=== PATIENT | female | born 1995 | race Caucasian/White ===

== ENCOUNTER 2021-09-14 11:20 | Inpatient (IN) | payer BC ==
[~2021-09-14 11:20] MED LIST: Iopamidol-370 76% 500 ML 1 ML ONE
[2021-09-14] MEDS ORDERED: Sodium Chloride 0.9% 100 ML ONE (11:56)
[2021-09-14] MEDS ORDERED: Ondansetron PF 4 MG/2 ML Vial ONE ×2 (11:56→14:57)
[2021-09-14] MEDS ORDERED: Piperacillin/Tazobactam 3.375 GM VIAL ONE (11:56)
[2021-09-14 12:26] LABS: BHCG - Serum Negative (NEGATIVE); Pregs Control Background? CLEAR/WHITE (CLR/WHITE); Pregs Control Bar Appear? YES (CONTROL BAR)
[2021-09-14 12:38] LABS: ALT (SGPT) 12 U/L (8-55); AST (SGOT) 14 U/L (5-34); Alkaline Phosphatase 71 U/L (40-110); Anion Gap 14 mmol/L (10-20); BUN (Urea Nitrogen) 20 mg/dL (7.0-18.7); Bilirubin, Total 0.8 mg/dL (0.2-1.2); Calc. Creatinine Clearance 0 mL/min (70-130); Carbon Dioxide 21 mmol/L (22-29); Chloride 100 mmol/L (98-107); Glucose 147 mg/dL (70-105); Lipase 12 U/L (8-78); Potassium 3.2 mmol/L (3.5-5.1); Sodium 132 mmol/L (136-145)
[2021-09-14 12:39] LABS: Bilirubin Small (Negative); Blood, Urine Large (Negative); Glucose, Urine (Dipstick) Negative (Negative); Ketone, Urine Trace mg/dL (Negative); Leukocyte Negative (Negative); Nitrite Negative (Negative); Protein, Urine (Dipstick) 100 mg/dL (Neg-Trace); pH, Urine 5.5 (5.0-9.0)
[2021-09-14 12:40] LABS: Clarity Turbid (Clear)
[2021-09-14 12:41] LABS: Hemoglobin 13.5 g/dL (12.0-16.0); Mean Corpuscular HGB CONC 34.3 g/dL (32.0-36.0); Mean Corpuscular Hemoglobin 30.6 pg (27.0-31.0); Mean Corpuscular Volume 89.4 fL (78.0-98.0); Mean Platelet Volume 6.7 fL (7.4-10.4); Platelet Count 316 thou/uL (130-400); RBC Distribution Width 12.1 % (11.5-14.5); Red Blood Cell (RBC) Count 4.39 mill/uL (4.20-5.40); White Blood Cell (WBC) Count 18.3 thou/uL (4.8-10.8)
[2021-09-14 12:46] LABS: Bacteria/HPF 2+ HPF (None Seen)
[2021-09-14 12:58] LABS: Band 53 % (5-11); Lymphocytes 10 % (21-51); MDiff Complete? YES; Monocytes 3 % (0-10); Neutrophil 34 % (42-75); Platelet Morphology Comment Appears Adequate; Polychromasia SLIGHT = 2-3 cells (100X) (0-2/hpf); Reflex for Review?? YES
[2021-09-14] MEDS ORDERED: Vancomycin 1 GM/200 ML BAG ONE (13:38)
[2021-09-14] MEDS ORDERED: Iothalamate Meglumine 60% 50 ML VIAL FS ONE (14:31)
[2021-09-14] MEDS ORDERED: Fentanyl 100 MCG/2 ML VIAL ONE (14:34)
[2021-09-14] MEDS ORDERED: Midazolam HCl 2 mg/2 ml Vial ONE (14:40)
[2021-09-14] MEDS ORDERED: SUGAMMADEX SODIUM 200 MG/2 ML VIAL ONE (14:40)
[2021-09-14] MEDS ORDERED: Lidocaine 1% PF 5 ML VIAL ONE (14:57)
[2021-09-14] MEDS ORDERED: Dexamethasone 20 MG/5 ML VIAL ONE (14:57)
[2021-09-14] MEDS ORDERED: PROPOFOL 200 MG/20 ML VIAL ONE (14:57)
[2021-09-14] MEDS ORDERED: Succinylcholine 200 MG/10 ml SYRINGE FS ONE (14:57)
[2021-09-14 15:00] LABS: SARS-CoV-2 NAA Rapid Test Not Detected (NotDetected)
[2021-09-14] MEDS ORDERED: Bisacodyl 5 MG TAB PO PRN (18:09)
[2021-09-14] MEDS ORDERED: Senokot S 8.6-50 MG TAB PO PRN (18:09)
[2021-09-14] MEDS ORDERED: Ondansetron PF 4 MG/2 ML Vial IVP PRN (18:09)
[2021-09-14] MEDS ORDERED: Acetaminophen 650 MG Suppository PR PRN (18:09)
[2021-09-14] MEDS ORDERED: HYDROcodone/Acetaminophen 5/325 mg Tablet PO PRN (18:09)
[2021-09-14] MEDS ORDERED: Ondansetron ODT 4 MG TAB PO PRN (18:09)
[2021-09-14] MEDS ORDERED: Ketorolac Tromethamine 30 MG/ML VIAL IVP PRN (18:11)
[2021-09-14] MEDS ORDERED: Electrolyte Replacement Protocol 1 EACH FS SCH (18:15)
[2021-09-14 18:31] VITALS: BMI 50.5
[2021-09-14] MEDS: Potassium Chloride 20 MEQ TAB PO SCH (22:34)
[2021-09-14] MEDS: Tamsulosin HCl 0.4 MG CAP PO SCH (22:35)
[2021-09-14] MEDS: Lactated Ringer's 1,000 ML IV SCH (22:39)
[2021-09-15] MEDS: Potassium Chloride 20 MEQ TAB PO SCH (02:19)
[2021-09-15] MEDS: Lactated Ringer's 1,000 ML IV SCH ×3 (02:58→18:38)
[2021-09-15] MEDS: Acetaminophen 325 MG TAB PO PRN ×2 (03:55→20:50)
[2021-09-15 04:20] LABS: Hemoglobin 12.7 g/dL (12.0-16.0); Mean Corpuscular HGB CONC 34.1 g/dL (32.0-36.0); Mean Corpuscular Hemoglobin 30.5 pg (27.0-31.0); Mean Corpuscular Volume 89.4 fL (78.0-98.0); Mean Platelet Volume 6.6 fL (7.4-10.4); Platelet Count 282 thou/uL (130-400); RBC Distribution Width 12.1 % (11.5-14.5); Red Blood Cell (RBC) Count 4.16 mill/uL (4.20-5.40); White Blood Cell (WBC) Count 20.5 thou/uL (4.8-10.8)
[2021-09-15 04:22] LABS: ALT (SGPT) 22 U/L (8-55); AST (SGOT) 22 U/L (5-34); Albumin 3.6 g/dL (3.5-5.0); Alkaline Phosphatase 63 U/L (40-110); Anion Gap 16 mmol/L (10-20); BUN (Urea Nitrogen) 13 mg/dL (7.0-18.7); Bilirubin, Total 0.4 mg/dL (0.2-1.2); Calc. Creatinine Clearance 240 mL/min (70-130); Calcium 8.4 mg/dL (7.8-10.44); Carbon Dioxide 18 mmol/L (22-29); Chloride 107 mmol/L (98-107); Globulin 3.1 g/dL (2.4-3.5); Glucose 155 mg/dL (70-105); Magnesium 1.8 mg/dL (1.6-2.6); Potassium 3.9 mmol/L (3.5-5.1); Protein, Total 6.7 g/dL (6.0-8.3); Sodium 137 mmol/L (136-145)
[2021-09-15] MEDS ORDERED: Magnesium 2 GM/50 ML 2 GM in Premix Bag 1 BAG IVPB SCH (04:45)
[2021-09-15 04:46] LABS: Band 38 % (5-11); Lymphocytes 7 % (21-51); MDiff Complete? YES; Metamyelocyte 1 % (0-0); Monocytes 1 % (0-10); Neutrophil 53 % (42-75)
[2021-09-15] MEDS: Piperacillin/Tazobactam 3.375 GM in Sodium Chloride 0.9% 100 ML IVPB SCH ×3 (06:04→21:03)
[2021-09-15] MEDS ORDERED: FLU VACC QS2021-22(6MOS UP)/PF 60 MCG/0.5 ML SYRINGE IM ONE (09:00)
[2021-09-15] MEDS: Enoxaparin Sodium 40 MG/0.4 ML SYRINGE SC SCH (09:18)
[2021-09-15] MEDS: Tamsulosin HCl 0.4 MG CAP PO SCH (20:50)
[2021-09-16] MEDS: Lactated Ringer's 1,000 ML IV SCH ×3 (02:31→18:16)
[2021-09-16 04:56] LABS: #Basophils 0.1 thou/uL (0.0-0.2); #Lymphocytes 1.6 thou/uL (1.20-3.40); #Monocytes 0.9 thou/uL (0.11-0.59); #Neutrophils 10.7 thou/uL (1.40-6.50); %Basophils 0.9 % (0.0-1.0); %Eosinophils 0.2 % (0.0-10.0); %Lymphocytes 12.2 % (21.0-51.0); %Monocytes 6.5 % (0.0-10.0); %Neutrophils 80.2 % (42.0-75.0); Hemoglobin 11.1 g/dL (12.0-16.0); Mean Corpuscular HGB CONC 33.2 g/dL (32.0-36.0); Mean Corpuscular Hemoglobin 29.7 pg (27.0-31.0); Mean Corpuscular Volume 89.6 fL (78.0-98.0); Mean Platelet Volume 6.6 fL (7.4-10.4); Platelet Count 256 thou/uL (130-400); RBC Distribution Width 11.9 % (11.5-14.5); Red Blood Cell (RBC) Count 3.75 mill/uL (4.20-5.40); White Blood Cell (WBC) Count 13.3 thou/uL (4.8-10.8)
[2021-09-16 05:15] LABS: ALT (SGPT) 20 U/L (8-55); AST (SGOT) 18 U/L (5-34); Albumin 3.1 g/dL (3.5-5.0); Alkaline Phosphatase 51 U/L (40-110); Anion Gap 12 mmol/L (10-20); BUN (Urea Nitrogen) 13 mg/dL (7.0-18.7); Bilirubin, Total 0.3 mg/dL (0.2-1.2); Calc. Creatinine Clearance 267 mL/min (70-130); Carbon Dioxide 22 mmol/L (22-29); Chloride 106 mmol/L (98-107); Globulin 2.7 g/dL (2.4-3.5); Glucose 120 mg/dL (70-105); Potassium 3.3 mmol/L (3.5-5.1); Protein, Total 5.8 g/dL (6.0-8.3); Sodium 137 mmol/L (136-145)
[2021-09-16 05:20] LABS: Vancomycin, Trough 61.2 ug/mL
[2021-09-16] MEDS ORDERED: Potassium Chloride 20 MEQ TAB PO SCH (05:30)
[2021-09-16] MEDS: Piperacillin/Tazobactam 3.375 GM in Sodium Chloride 0.9% 100 ML IVPB SCH (06:32)
[2021-09-16] MEDS: Enoxaparin Sodium 40 MG/0.4 ML SYRINGE SC SCH (09:05)
[2021-09-16 10:05] LABS: Vancomycin, Trough 22.8 ug/mL
[2021-09-16] MEDS ORDERED: MEROPENEM 1 GM/50 ML 1 GM in Premix Bag 1 BAG IVPB SCH (13:45)
[2021-09-16] MEDS: MEROPENEM 1 GM/50 ML 1 GM in Premix Bag 1 BAG IVPB SCH (15:53)
[2021-09-16] MEDS: Acetaminophen 325 MG TAB PO PRN (18:20)
[2021-09-16] MEDS: Tamsulosin HCl 0.4 MG CAP PO SCH (20:14)
[2021-09-17] MEDS: Lactated Ringer's 1,000 ML IV SCH ×2 (04:31→09:09)
[2021-09-17] MEDS: MEROPENEM 1 GM/50 ML 1 GM in Premix Bag 1 BAG IVPB SCH ×2 (06:09→14:29)
[2021-09-17] MEDS ORDERED: Amlodipine 5 MG TAB PO SCH (09:00)
[2021-09-17] MEDS: Enoxaparin Sodium 40 MG/0.4 ML SYRINGE SC SCH (09:05)
[2021-09-17] MEDS ORDERED: Loratadine 10 MG TAB PO PRN (09:35)
[2021-09-17 12:07] LABS: #Basophils 0.1 thou/uL (0.0-0.2); #Lymphocytes 2.2 thou/uL (1.20-3.40); #Neutrophils 6.7 thou/uL (1.40-6.50); %Basophils 0.9 % (0.0-1.0); %Eosinophils 0.2 % (0.0-10.0); %Monocytes 9.5 % (0.0-10.0); %Neutrophils 67.4 % (42.0-75.0); Hemoglobin 12.1 g/dL (12.0-16.0); Mean Corpuscular HGB CONC 33.4 g/dL (32.0-36.0); Mean Corpuscular Hemoglobin 29.9 pg (27.0-31.0); Mean Corpuscular Volume 89.5 fL (78.0-98.0); Mean Platelet Volume 6.7 fL (7.4-10.4); Platelet Count 284 thou/uL (130-400); RBC Distribution Width 11.8 % (11.5-14.5); Red Blood Cell (RBC) Count 4.06 mill/uL (4.20-5.40)
[2021-09-17 12:29] LABS: ALT (SGPT) 24 U/L (8-55); AST (SGOT) 18 U/L (5-34); Albumin 3.5 g/dL (3.5-5.0); Alkaline Phosphatase 62 U/L (40-110); Anion Gap 14 mmol/L (10-20); BUN (Urea Nitrogen) 9 mg/dL (7.0-18.7); Bilirubin, Total 0.4 mg/dL (0.2-1.2); Calc. Creatinine Clearance 271 mL/min (70-130); Carbon Dioxide 27 mmol/L (22-29); Chloride 100 mmol/L (98-107); Globulin 3.2 g/dL (2.4-3.5); Glucose 121 mg/dL (70-105); Potassium 3.7 mmol/L (3.5-5.1); Protein, Total 6.7 g/dL (6.0-8.3); Sodium 137 mmol/L (136-145)
[2021-09-17] MEDS ORDERED: Labetalol 100 MG TAB PO SCH ×2 (14:00→21:00)
[2021-09-17 15:48] VITALS: BP 148/102; TEMP 98.7
[2021-09-18] MEDS ORDERED: Amlodipine 5 MG TAB PO SCH (09:00)
== END 2021-09-17 18:14 | disposition home or self-care (01) | DRG 854 ==
LOC: ERS 11:20 → 3SE 14:52 → SDC 15:06 → 3SE 16:00
PROVIDERS: ADMIT Family Medicine; ATTEND Family Medicine
PROC: 0T778DZ Dilation of Left Ureter with Intraluminal Device, Via Natural or Artificial Opening Endoscopic (ICD-10-PCS; principal; 2021-09-14)
PROC: BT1F1ZZ Fluoroscopy of Left Kidney, Ureter and Bladder using Low Osmolar Contrast (ICD-10-PCS; 2021-09-14)
DX: A41.9 Sepsis, unspecified organism (principal); N17.9 Acute kidney failure, unspecified; Z68.43 Body mass index [BMI] 50.0-59.9, adult; N13.6 Pyonephrosis; E87.6 Hypokalemia; E66.9 Obesity, unspecified; Z20.822 Contact with and (suspected) exposure to COVID-19; R65.20 Severe sepsis without septic shock; Z88.1 Allergy status to other antibiotic agents
CPT/HCPCS: 36415; 51701; 74177; 76000; 80053; 80202; 81003; 81015; 83605; 83690; 83735; 84703; 85025; 85060; 87040; 87077; 87086; 87149; 87186; 93005; 94760; 96365; 96367; 96375; C2617; J1100; J1650; J2185; J2250; J2405; J2543; J2704; J3010; J3370; J3475; J3490; J7030; J7120; Q9961-U8; Q9967; U0002